=== PATIENT | male | born 1950 | race Caucasian/White ===

== ENCOUNTER → 2017-05-23 09:50 | Outpatient (CLI) | payer BC | END | disposition home or self-care (01) | LOC: D.MRI 09:50 | DX: J98.4 Other disorders of lung (principal); J45.909 Unspecified asthma, uncomplicated ==

== ENCOUNTER → 2017-06-17 12:23 | Outpatient (CLI) | payer BC | END | disposition home or self-care (01) | LOC: D.MRI 06-07 16:30 | DX: M25.562 Pain in left knee (principal) ==

== ENCOUNTER → 2018-09-05 13:47 | Outpatient (CLI) | payer MEDICARE, BC | END | disposition home or self-care (01) | LOC: D.RT 13:47 → D.RAD 09-19 15:00 → D.RT 09-26 13:00 | PROVIDERS: ATTEND Internal Medicine Pulmonary Disease | DX: J45.909 Unspecified asthma, uncomplicated (principal); J98.4 Other disorders of lung ==